=== PATIENT | male | born 1990 | race Two or more races ===

== ENCOUNTER 2022-10-07 10:25 | Outpatient (CLI) | payer BC | END 2022-10-07 23:59 | disposition home or self-care (01) | LOC: WOU 10:25 | PROVIDERS: ATTEND Podiatrist Foot & Ankle Surgery | DX: M76.822 Posterior tibial tendinitis, left leg (principal); M25.572 Pain in left ankle and joints of left foot | CPT/HCPCS: G0463 ==

== ENCOUNTER 2022-10-14 11:09 | Outpatient (CLI) | payer BC | END 2022-10-14 23:59 | disposition home or self-care (01) | LOC: WOU 11:09 | PROVIDERS: ATTEND Podiatrist Foot & Ankle Surgery | DX: L84 Corns and callosities (principal); L60.3 Nail dystrophy; M76.822 Posterior tibial tendinitis, left leg; M25.572 Pain in left ankle and joints of left foot | CPT/HCPCS: 11056; 11721 ==